=== PATIENT | male | born 1950 | race Caucasian/White ===

== ENCOUNTER → 2018-12-05 | Outpatient (CLI) | payer BC | END | disposition home or self-care (01) | LOC: RAD 07:28 | PROVIDERS: ATTEND Family Medicine | DX: E78.2 Mixed hyperlipidemia (principal); R73.9 Hyperglycemia, unspecified | CPT/HCPCS: 76706 ==

== ENCOUNTER → 2018-12-12 | Outpatient (CLI) | payer BC ==
[~2018-12-12] MED LIST: ACET-1757 PO; ATOR40TA78 PO; IBUP-1221 PO; LEVO150T PO; RANI150T4 PO
[2018-12-12 10:53] LABS: MICROSCOPIC NOT IND
[2018-12-12 10:55] LABS: BASOPHILS # (AUTO) 0.05 x10^3/uL (0-0.1); BASOPHILS % (AUTO) 1 % (0-1); EOSINOPHILS # (AUTO) 0.15 x10^3/uL (0-0.4); EOSINOPHILS % (AUTO) 3 % (1-7); LYMPHOCYTES # (AUTO) 2.15 x10^3/uL (1-3.4); LYMPHOCYTES % (AUTO) 40 % (22-44); MD NO; MEAN CORPUSCULAR HEMOGLOBIN 33.7 pg (27.5-34.5); MEAN CORPUSCULAR HGB CONC 34.1 g/dL (33.2-36.2); MEAN CORPUSCULAR VOLUME 98.9 fL (81-97); MEAN PLATELET VOLUME 8.6 fL (7.4-10.4); MONOCYTES # (AUTO) 0.48 x10^3/uL (0.2-0.8); MONOCYTES % (AUTO) 9 % (2-9); NEUTROPHILS # (AUTO) 2.56 x10^3/uL (1.8-6.8); NEUTROPHILS % (AUTO) 48 % (42-75); PLATELET COUNT 186 x10^3/uL (130-400); RED CELL DISTRIBUTION WIDTH 13.9 % (9.4-14.8)
[2018-12-12 10:56] LABS: CULTURE INDICATED? NO
[2018-12-12 11:04] LABS: ALANINE AMINOTRANSFERASE 33 U/L (12-78); ALBUMIN 3.7 g/dL (3.4-5.0); ANION GAP 3 mmol/L (5-15); CALCIUM 8.8 mg/dL (8.5-10.1); CHLORIDE 110 mmol/L (98-107)
[2018-12-12 11:06] LABS: ALKALINE PHOSPHATASE 93 U/L (45-117); BILIRUBIN,TOTAL 0.5 mg/dL (0.2-1.0); TOTAL PROTEIN 6.7 g/dL (6.4-8.2)
== END | disposition home or self-care (01) ==
LOC: STAR 08:57
PROVIDERS: ATTEND Orthopaedic Surgery
DX: Z01.818 Encounter for other preprocedural examination (principal); M16.11 Unilateral primary osteoarthritis, right hip
CPT/HCPCS: 36415; 80053; 81003; 85025; 87081; 93005

== ENCOUNTER 2018-12-25 05:49 | Inpatient (IN) | payer MEDICARE, BC ==
[~2018-12-25] VITALS: Ht 175.3 cm; Wt 81.2 kg
[2018-12-25] MEDS ORDERED: LACTATED RINGERS 1,000 ML IV SCH (06:04)
[2018-12-25] MEDS ORDERED: ROPIvacaine/PF 0.2%, 20 ML ONE (06:28)
[2018-12-25] MEDS ORDERED: KETOROLAC 60 MG/2 ML ONE (06:28)
[2018-12-25] MEDS ORDERED: TRANEXAMIC ACID 100 MG/ML, 10ML ONE ×2 (06:28)
[2018-12-25] MEDS ORDERED: SODIUM CHLORIDE 0.9% 50 ML ONE (06:28)
[2018-12-25] MEDS ORDERED: EPINEPHRINE 1 MG/ML, 1ML ONE (06:29)
[2018-12-25] MEDS ORDERED: MIDAZOLAM 1 MG/ML, 2ML ONE (06:47)
[2018-12-25] MEDS ORDERED: PROPOFOL 50 ML ONE (06:48)
[2018-12-25] MEDS ORDERED: FENTANYL PF 100 MCG/2ML ONE (06:48)
[2018-12-25] MEDS ORDERED: PHENYLEPHRINE 10 MG/ML ONE (06:49)
[2018-12-25] MEDS ORDERED: CEFAZOLIN 1,000 MG ONE (06:49)
[2018-12-25] MEDS ORDERED: PROPOFOL 10 MG/ML, 20ML ONE (06:49)
[2018-12-25] MEDS ORDERED: DEXAMETHASONE 4 MG/ML, 1ML ONE (06:49)
[2018-12-25] MEDS ORDERED: ONDANSETRON 2MG/ML, 2ML ONE (06:49)
[2018-12-25] MEDS ORDERED: PROPOFOL 10 MG/ML, 50ML ONE (06:49)
[2018-12-25] MEDS ORDERED: EPHEDRINE 50 MG/ML, 1ML ONE (06:49)
[2018-12-25] MEDS ORDERED: ACETAMINOPHEN 500 MG TABLET PO ONE (07:00)
[2018-12-25] MEDS ORDERED: OxyconTIN ER 10 MG TAB.ER PO ONE (07:00)
[2018-12-25] MEDS ORDERED: TAMSULOSIN 0.4 MG CAP.ER.24H PO ONE (07:00)
[2018-12-25] MEDS ORDERED: GABAPENTIN 300 MG CAPSULE PO ONE (07:00)
[2018-12-25] MEDS ORDERED: OXYcodone 5 MG/5 ML ORAL.SOL UDC PO PRN (07:30)
[2018-12-25] MEDS ORDERED: MIDAZOLAM 1 MG/ML, 2ML IV PRN (07:30)
[2018-12-25] MEDS ORDERED: ALBUTEROL/IPRATROPIUM 2.5MG/0.5MG, 3 ML NPPB PRN (07:30)
[2018-12-25] MEDS ORDERED: ONDANSETRON 2MG/ML, 2ML IV PRN ×2 (07:30→08:30)
[2018-12-25] MEDS ORDERED: LABETALOL 5MG/ML, 20ML IV PRN (07:30)
[2018-12-25] MEDS ORDERED: PROMETHAZINE 25 MG/ML, 1ML IV PRN (07:30)
[2018-12-25] MEDS ORDERED: hydrALAzine 20 MG/ML, 1ML IV PRN (07:30)
[2018-12-25] MEDS ORDERED: FENTANYL PF 100 MCG/2ML IV PRN (07:30)
[2018-12-25] MEDS ORDERED: PROMETHAZINE 12.5 MG SUPP PR PRN (08:30)
[2018-12-25] MEDS ORDERED: ZOLPIDEM 5MG TABLET PO PRN (08:30)
[2018-12-25] MEDS ORDERED: PROMETHAZINE 25 MG/ML, 1ML IM PRN (08:30)
[2018-12-25] MEDS ORDERED: HYDROmorphone 1 MG/ML, 1ML IV PRN (08:30)
[2018-12-25] MEDS ORDERED: BISACODYL 10 MG SUPP PR PRN (08:30)
[2018-12-25] MEDS ORDERED: MAGNESIUM HYDROXIDE 8%, 30ML UDC PO PRN (08:30)
[2018-12-25] MEDS ORDERED: DIPHENHYDRAMINE 50 MG CAPSULE PO PRN (08:30)
[2018-12-25] MEDS ORDERED: ONDANSETRON 4 MG TABLET PO PRN (08:30)
[2018-12-25] MEDS ORDERED: ALUMINUM/MAG/SIMETHICONE 30 ML UDC PO PRN (08:30)
[2018-12-25] MEDS ORDERED: SENNA/DOCUSATE TABLET PO PRN (08:30)
[2018-12-25] MEDS ORDERED: DIAZEPAM 5 MG TABLET PO PRN (08:30)
[2018-12-25] MEDS ORDERED: TRANEXAMIC ACID 1,000 MG in SODIUM CHLORIDE 0.9% 100 ML IVPB ONE (08:30)
[2018-12-25] MEDS: TAMSULOSIN 0.4 MG CAP.ER.24H PO SCH ×2 (08:40→09:00)
[2018-12-25 11:20] VITALS: BP 109/60
[2018-12-25] MEDS: D5%-0.45% NACL 1,000 ML IV SCH ×2 (12:09→23:36)
[2018-12-25 14:00] VITALS: BP 107/56
[2018-12-25] MEDS: DOCUSATE 100 MG CAPSULE PO SCH ×2 (16:17→23:35)
[2018-12-25] MEDS: CEFAZOLIN PMX 2GM/50ML 50 ML IVPB SCH ×2 (16:18→23:36)
[2018-12-25] MEDS: MULTIVITAMINS/MINERALS TABLET PO SCH (16:23)
[2018-12-25 19:53] VITALS: BP 107/60
[2018-12-25] MEDS ORDERED: ATORVASTATIN 40 MG TABLET PO SCH (21:00)
[2018-12-25 23:15] VITALS: BP 103/57
[2018-12-25] MEDS: HYDROcodone/APAP 10/325 MG TABLET PO PRN (23:42)
[2018-12-25] MEDS: ACETAMINOPHEN 650 MG/20.3 ML UDC PO PRN (23:42)
[2018-12-26 04:01] VITALS: BP 96/54
[2018-12-26] MEDS ORDERED: DEXAMETHASONE 4 MG/ML, 1ML IVPush SCH (06:00)
[2018-12-26] MEDS ORDERED: LEVOTHYROXINE 150 MCG TABLET PO SCH (06:00)
[2018-12-26] MEDS ORDERED: ASPIRIN 81 MG TABLET EC PO SCH (06:00)
[2018-12-26] MEDS: ACETAMINOPHEN 650 MG/20.3 ML UDC PO PRN (06:25)
[2018-12-26] MEDS: HYDROcodone/APAP 10/325 MG TABLET PO PRN (06:25)
[2018-12-26] MEDS: D5%-0.45% NACL 1,000 ML IV SCH (07:30)
[2018-12-26 08:23] VITALS: BP 102/61
[2018-12-26] MEDS ORDERED: KETOROLAC 30 MG/1 ML IV SCH (08:30)
[2018-12-26] MEDS: DOCUSATE 100 MG CAPSULE PO SCH (08:53)
[2018-12-26] MEDS: MULTIVITAMINS/MINERALS TABLET PO SCH (08:54)
[2018-12-26] MEDS: TAMSULOSIN 0.4 MG CAP.ER.24H PO SCH (08:54)
[2018-12-26] MEDS ORDERED: HYDR-3307 PO (11:51)
[2018-12-26 12:00] VITALS: BP 110/75
== END 2018-12-26 12:05 | disposition home or self-care (01) | DRG 470 ==
LOC: ORIP 05:49 → 4NOR 11:20
PROVIDERS: ADMIT Orthopaedic Surgery; ATTEND Orthopaedic Surgery
PROC: 0SR906A Replacement of Right Hip Joint with Oxidized Zirconium on Polyethylene Synthetic Substitute, Uncemented, Open Approach (ICD-10-PCS; principal; 2018-12-25 07:00)
DX: M16.11 Unilateral primary osteoarthritis, right hip (principal); E78.5 Hyperlipidemia, unspecified; K21.9 Gastro-esophageal reflux disease without esophagitis; I10 Essential (primary) hypertension; F17.210 Nicotine dependence, cigarettes, uncomplicated
CPT/HCPCS: 36415; 72170; 85014; 85018; C1713; G0378; J0171; J0690; J1100; J1885; J2250; J2405; J2704; J2795; J3010; C1776; J2370; J7120